=== PATIENT | male | born 1990 | race Caucasian/White ===

== ENCOUNTER 2017-01-28 11:36 | Inpatient (IN) | payer BC, SELFPAY ==
[~2017-01-28] VITALS: Ht 182.9 cm; Wt 139.4 kg
--- NOTE | ~2017-01-28 | DS ---
ADMIT: 01/28/2017 RM/LOC: 625 [facility] MR#: [id number] [address] [facility] [address] [place], [place] [address] [address] [facility] 7 [place] [address] General Discharge Summary SEX: M AGE: 26 : 1990 ADMISSION DATE: 01/28/2017 DISCHARGE DATE: 01/30/2017 REASON FOR ADMISSION: 1. Seizure. 2. Left frontal lobe lesion. HOSPITAL COURSE: On the day of admission, Mr. Vergara was at the mall with his fiancee and had a seizure. He does not have a history of seizures. He does not remember the seizure. He was brought to the [facility] Emergency Room by ambulance. A CT scan of his head was obtained and revealed a left frontal lobe lesion. He was admitted to the Med/Surg floor for monitoring and care. He was started on Keppra for the seizures. He was also placed on seizure precautions. Hospital day #2, he was awake and alert, he was moving all extremities x4. There was question if he had very mild dystonia. A CT scan of his chest, abdomen and pelvis was obtained. This revealed a slightly increased tissue within the left breast, otherwise no acute findings noted. An ultrasound of the left breast was obtained and was negative for any acute findings. Hospital day #3, he was awake and alert, he was afebrile and his vital signs were stable. He was moving all extremities x4. He denied headache or visual disturbances. He had no further seizures. He was ambulating, urinating, and defecating per his norm and was requesting discharge home. DISCHARGE CONDITION: Good. DISCHARGE MEDICATIONS: 1. Claritin-D 1 tablet daily. 2. Keppra 500 mg p.o. b.i.d. 3. Augmentin twice daily, finish the dosing he had at home. 4. Multivitamin daily. 5. Effexor ER 150 mg q.p.m. 6. Super B-Complex daily p.r.n. 7. Vitamin D3 5000 units daily. 8. Fortune complex 500 mg daily. 9. Lutein/zeaxanthin 25/5 mg daily. DISCHARGE INSTRUCTIONS: Per Dr. Bernard. He can have a regular diet. He should be off work until he is seen in the clinic next . He should return to the ER if any seizures. He should utilize fall precautions. He ADMIT: 01/28/2017 RM/LOC: 625 [facility] MR#: [id number] [address] [facility] [address] [place] [id number] [address] [place] [address] General Discharge Summary SEX: M AGE: 26 : 1990 should not take any NSAIDs. He should not take any aspirin. He is to get a functional MRI of the brain in [place] for evaluation of his frontal lesion in correlation to the speech center prior to his appointment with Dr. Bernard next . He will call with any questions or concerns including neurological worsening, signs or symptoms of infection, or any other issues. FOLLOWUP: He will follow up with Dr. Bernard in clinic next . DISPOSITION: He was discharged home. Total iopv-jv-mryi time for the discharge planning, care coordination was 30 minutes. Juany Cruz APRN / Ricardo Bernard MD / margot JOB #: [id number] CC: Ricardo Bernard MD, Attending Physician Jason Chew MD, Family Physician
[2017-01-30] MEDS ORDERED: EFFEXOR XR DPS150 MG PO (19:56)
[2017-01-30] MEDS ORDERED: AUGMENTIN 875-1 EACH PO (19:56)
[2017-01-30] MEDS ORDERED: MEN'S DAILY FO1 EACH PO (19:57)
[2017-01-30] MEDS ORDERED: SUPER B COMPLE150 MG PO (19:57)
[2017-01-30] MEDS ORDERED: LUTEIN-ZEAXANT1 EACH PO (19:58)
[2017-01-30] MEDS ORDERED: VITAMIN D35000 UNI1 PO (19:58)
[2017-01-30] MEDS ORDERED: [UNRECOGNIZED DRUG - OTHER] PO (19:58)
[2017-01-30] MEDS ORDERED: KEPPRA DPS500 MG PO (19:59)
[2017-01-30] MEDS ORDERED: CLARITIN DPS10 MG PO (19:59)
--- NOTE | 2017-02-07 06:57 | ER ---
ADMIT: 01/28/2017 RM/LOC: 625 [facility] MR#: [id number] [address] [facility] [address] [place], [place] [address] [address] [facility] 7 [place] [address] Emergency Room Report SEX: M AGE: 26 : 1990 DATE: 01/28/2017 CHIEF COMPLAINT: Seizure. HISTORY OF PRESENT ILLNESS: The patient is a 26-year-old male with no seizure history, who comes in by EMS for possible seizure. He was at the mall with his significant other when the event happened. Apparently, he had a normal morning and had no preceding events. She states that he was talking with an employee at the mall and herself and is looking something up on his phone when he became unresponsive, his arms tightened up to his chest, and he fell backwards and started shaking all over. Apparently, he lost consciousness and symptoms lasted for approximately 3 to 5 minutes. When he stopped shaking, he had episodes consistent with postictal and was decreased responsiveness. There was no loss of bowel or bladder function and no injuries I could appreciate. The patient reports that he has been on antibiotics for the past week to week and a half for some sinus issues, but otherwise denies any other symptoms. REVIEW OF SYSTEMS: A 10-point review of systems is done and otherwise negative except as in HPI. PAST MEDICAL HISTORY: Unremarkable other than some depression. MEDICATIONS: He is on Effexor. ALLERGIES: NONE. SOCIAL HISTORY: Denies smoking, drug, or alcohol use. PHYSICAL EXAMINATION: See T-sheet for complete physical exam. NEUROLOGIC: Completely unremarkable for me and the only pertinent finding on his exam I could appreciate was he has some abrasion/ecchymosis on the right side of his tongue. LABORATORY DATA: Laboratory shows a slightly elevated white count of 11.4 with normal chemistries. Urinalysis shows 1+ protein, otherwise negative and urine tox is negative. Lactic acid was elevated at 2.3, which is consistent with him having a seizure. CT head was done, which shows a left frontal lobe ADMIT: 01/28/2017 RM/LOC: 625 [facility] MR#: [id number] [address] [address] [address] R [address] [facility] [address] [place] [address] Emergency Room Report SEX: M AGE: 26 : 1990 lesion approximately 6 x 4 cm. EMERGENCY DEPARTMENT COURSE: When I got the results of the CAT scan, I went ahead and contacted Dr. Ricardo Bernard from Neurosurgery, who saw the patient in the Emergency Department and will be admitting him to his service for further workup of this left frontal lobe lesion. I also contacted the patient's primary care physician, Dr. Chew and made him aware the patient was being admitted. The patient is admitted in stable and improved condition with a diagnoses of: 1. Left frontal lobe lesion, possible tumor. 2. First-time seizure. 3. Lactic acidosis. Dale Weber MD/ margot JOB #: [id number] CC: Ricardo Bernard MD, Attending Physician Jason Chew MD, Family Physician
--- NOTE | 2017-02-10 08:45 | HP ---
ADMIT: 01/28/2017 RM/LOC: 625 [facility] MR#: [id number] [address] [facility] [address] [place], [place] [address] [address] [facility] [address] [place] [address] History and Physical SEX: M AGE: 26 : 1990 DATE OF SERVICE: 01/28/2017 REASON FOR ADMIT: Brain lesion. HISTORY OF PRESENT ILLNESS: Mr. Vergara was at the mall today when he had a seizure. He just remembers being at the mall and then waking up in the gurney. He has never had a seizure before. He does take Effexor for some depression, but does not have any other medical history. He has not noted any neurological changes, no speech problems, no weakness. PAST MEDICAL HISTORY: Depression. MEDICATIONS: Effexor. ALLERGIES: NONE KNOWN. SOCIAL HISTORY: He is a nonsmoker and nondrinker. He is engaged. He has no children. FAMILY HISTORY: No history of neurosurgical disease or cancers in the family. REVIEW OF SYSTEMS: Complete review of systems was obtained and annotated in physician intake form. PHYSICAL EXAM: VITAL SIGNS: 150/62, pulse 100, respiring 12 times a minute, 98% on room air. GENERAL: He looks older than his stated age. HEENT: With an atraumatic head. No scleral icterus. Clear oropharynx. Bite hubbard to the bilateral sides of his tongue. NECK: Normal range of motion of his neck. LUNGS: Normal respiratory excursion. ABDOMEN: Obese, soft abdomen. EXTREMITIES: 2+ radial pulses. NEUROLOGICAL EXAMINATION: MENTAL STATUS: He is he is mildly sluggish but he has no aphasia. No speech deficits. He is oriented x4. CRANIAL NERVES: Cranial nerves II through XII are individually tested and found to be intact without deficit with the exception of very mild right ADMIT: 01/28/2017 RM/LOC: 625 [facility] MR#: [id number] [address] [facility] [address] [place], [place] [address] [address] [facility] [address] [place] [address] History and Physical SEX: M AGE: 26 : 1990 facial droop. CEREBELLAR: No cerebellar signs. Gait not tested. Motor 5/5 strength in bilateral upper and lower extremities. Deep tendon reflexes 2/4 in the upper and lower extremities. Sensation intact to the face and upper and lower extremities to light touch. ASSESSMENT AND PLAN: Mr. Vergara is a very pleasant, 26-year-old gentleman with a lesion to the left frontal lobe. I am going to obtain an MRI. We will start him on Keppra and better evaluate this. I think it is most likely a tumor, could also be infection or stroke. I will see what the MRI looks like. He will need to be in the hospital for a day or two for evaluation and planning. Ricardo Bernard MD/ margot JOB #: [id number] CC: Jason Chew, Attending Physician Jason Chew, Family Physician
== END 2017-01-30 11:45 | disposition home or self-care (01) | DRG 71 ==
LOC: ER 11:36 → 6PED 13:50
PROVIDERS: ADMIT Neurological Surgery
DX: G93.9 Disorder of brain, unspecified (principal); Z68.41 Body mass index [BMI] 40.0-44.9, adult; F32.9 Major depressive disorder, single episode, unspecified; R56.9 Unspecified convulsions; E66.01 Morbid (severe) obesity due to excess calories

== ENCOUNTER 2017-02-11 07:23 | Inpatient (IN) | payer BC ==
[~2017-02-11] VITALS: Ht 182.9 cm; Wt 135.2 kg
--- NOTE | ~2017-02-11 | DS ---
ADMIT: 02/11/2017 RM/LOC: 314 [facility] MR#: [id number] [facility]#: [id number] [address] [facility] [address] [place], [place] [address] [address] [facility] [address] [place] [address] Discharge Summary SEX: M AGE: 26 : 1990 ADMISSION DATE: 02/11/2017 DISCHARGE DATE: 02/13/2017 SERVICE: Neurosurgery. REASON FOR ADMISSION: 1. Brain tumor. 2. Seizure. PROCEDURE: An awake left craniotomy for resection of tumor. HOSPITAL COURSE: Mr. Vergara tolerated his procedure well. Postoperatively, he was taken to the ICU for close monitoring and care. Postop day #1 he was awake and alert. He was afebrile. His vital signs were stable. He was moving all extremities x4 with 5/5 strength. He complained of a mild left frontal headache. His head wrap was clean, dry, and intact. His HERIBERTO drain was patent with serosanguineous drainage that was turning more serous. He was working with speech therapy, occupational therapy, and physical therapy and was tolerating this quite well. That afternoon, he was moved out of the intensive care unit to the med/surg floor. Postop day #2, he was awake and alert. He was oriented x4. His vital signs were stable. His speech was fluent. His EOMs were intact. He was moving all extremities x4. His face was symmetrical. His dressing was removed. He was ambulating, urinating, and defecating per his norm and was requesting discharge home. DISCHARGE CONDITION: Good. CURRENT MEDICATIONS: 1. Claritin-D 1 tablet p.o. at bedtime. 2. Colace 100 mg p.o. b.i.d. 3. Effexor 150 mg p.o. at bedtime. 4. Super B complex daily. 5. Prevacid daily. 6. Multivitamin daily. 7. Vitamin D 5000 units daily. 8. Decadron 4 mg every 6 hours x24 hours then every 8 hours x48 hours then 4 mg q.12 hours x48 hours then 4 mg day x24 hours then 3 mg daily x24 hours then 2 mg per day x24 hours then 1 mg per day x24 hours and then discontinue. 9. Tylenol 650 mg p.o. q.4 hours p.r.n. 10.Keppra 500 mg p.o. b.i.d. DISCHARGE INSTRUCTIONS: Per Dr. Bernard, he can have a regular diet. He may shower, he should limit the amount of time his incision is under the water. ADMIT: 02/11/2017 RM/LOC: 314 [facility] MR#: [id number] [address] [address] [address] [place] [address] Discharge Summary SEX: M AGE: 26 : 1990 He should use baby shampoo only on his hair. He should not lift anything greater than 15 pounds[address] He should not drive until he is seen in clinic. He should not work until he is seen in clinic. He will call with any questions or concerns including neurological worsening, signs or symptoms of infection, or any other issues. FOLLOWUP: He will follow up with Dr. Bernard in clinic in 2 weeks. DISPOSITION: He was discharged home. Total ukcv-re-qecn time for the discharge planning and care coordination was 30 minutes. Juany Cruz APRN / Ricardo Bernard MD / beatriz JOB #: [id number] CC: Ricardo Bernard MD, Attending Physician Jason Chew MD, Family Physician
[~2017-02-11 07:23] MED LIST: AUGMENTIN 875-1 EACH PO; CLARITIN DPS10 MG PO; EFFEXOR XR DPS150 MG PO; KEPPRA DPS500 MG PO; LUTEIN-ZEAXANT1 EACH PO; MEN'S DAILY FO1 EACH PO; SUPER B COMPLE150 MG PO; VITAMIN D35000 UNI1 PO; [UNRECOGNIZED DRUG - OTHER] PO
[2017-02-13] MEDS ORDERED: EFFEXOR XR DPS150 MG PO (20:41)
[2017-02-13] MEDS ORDERED: KEPPRA DPS500 MG PO (20:41)
[2017-02-13] MEDS ORDERED: THERA1 EACH PO (20:42)
[2017-02-13] MEDS ORDERED: COLACE-DPS100 MG PO (20:42)
[2017-02-13] MEDS ORDERED: CLARITIN-D 241 EACH PO (20:42)
[2017-02-13] MEDS ORDERED: SUPER B COMPLE150 MG PO (20:42)
[2017-02-13] MEDS ORDERED: VITAMIN D35000 UNI1 PO (20:42)
[2017-02-13] MEDS ORDERED: DEXAMETHASONE4 MG PO (20:43)
[2017-02-13] MEDS ORDERED: PROTONIX40 MG PO (20:43)
[2017-02-13] MEDS ORDERED: TYLENOL DPS325 MG PO (20:44)
--- NOTE | 2017-02-16 08:32 | OR ---
ADMIT: 02/11/2017 RM/LOC: 314 [facility] MR#: [id number] [address] [facility] [address] [place], [place] [address] [address] [facility] 7 [place] [address] Operative/Delivery Room Report SEX: M AGE: 26 : 1990 SURGERY DATE: 02/11/2017 SURGEON: Ricardo Bernard MD CUSTOMS CONSULTANT: Ms. Juany Cruz APRN. 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 PROCEDURE: Stereotactic supratentorial craniotomy for resection of tumor with intraoperative stereotaxy with the tumor resection performed in an awake fashion with 1 hour of intraoperative stimulation for diagnosis of speech centers during the middle of the case. DESCRIPTION OF PROCEDURE: After gaining informed consent, the patient was taken to the operative theater, placed under general LMA anesthesia. A time- out was utilized to ascertain the correct site and side of surgery as well as other pertinent patient historical information. Counts were obtained at the beginning and the end of the case with no change betwixt the two. Antibiotics were given within 1 hour of incision. The patient was very cautiously placed in the Jber head chef and clamped to the bed with all pressure points purposely padded prior to performing the procedure. Extra time was utilized to make sure that we would be able to have acceptable visualization of the patient after awakening him. Decadron and mannitol were given after the opening. The patient's head was co-registered with the BrainLAB system and this was then drawn out on interpretation of the skull and a pterional type incision was then fashioned. The incision was opened and taken down to the temporalis fascia and muscle. This was then very cautiously incised and reflected posteriorly taking caution to leave the tissues near MacCarty keyhole to preserve the frontalis branch of the facial nerve. Self-retaining retractors were placed after placing Pato clips and fish hooks for better exposure. At this point, the pterion was visible. The tumor representation was drawn out over top of the pterion and then pterional frontotemporal craniotomy was fashioned. Rayland hole was fashioned superiorly as well as the keyhole at MacCarty as well as at the zygomatic base. The dura was stripped off internally with a [place] and then the craniotome was brought in the field and the flap was plated and placed in bacitracin irrigant for reimplantation later in the case. Epidural tack-ups were prepared as well. The dura was visible. At this point, the patient was awakened after a very nice and gentle emergence. He was very talkative reproducibly so and was awake and oriented to person, place, and situation. At this point, the dura was opened in a stellate fashion and tacked back with 4-0 Nurolon. A ADMIT: 02/11/2017 RM/LOC: 314 [facility] MR#: [id number] [address] [place] [phone] [address] [place] [address] Operative/Delivery Room Report SEX: M AGE: 26 : 1990 relatively normal-appearing brain was encountered. The pars operculum and the pars triangularis were visible, as well as just posterior to that region. Then, utilizing the [place] Labsmann stimulator with 2-4 seconds of on time with the brain at 1-2 and occasionally 3 milliamps, the patient was speaking with Speech Language Pathology and being tested and multiple points over the next hour were tested, irrigating the brain if there was any post test activation and discharge. The only area that had some breakage of speech was posterior to where the tumor was represented over top of the pars triangularis. There was no sign of speech arrest. Once this was all delineated, the area that appeared to need the most caution was posteriorly and near the sulcus delineating the pars opercularis. Once this was visualized in the anterior aspect of the pars triangularis, bipolar electrocautery was utilized to fashion a corticotomy. The white matter was suctioned away and then tumorous- appearing tissue that was costa and relatively suctionable was noted. 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 With this information, with the patient consistently speaking with Speech Therapy, I utilized the stereotactic guidance system and the cavitating ultrasound aspirator as well as taking multiple larger specimen pieces for formal pathological analysis and sequentially resected by internal debulking and then arriving at normal- appearing white matter at 360 degrees. This extended down to the sylvian fissure in a subpial manner. Pristine hemostasis was maintained throughout the case. There was no sign of damage to any of the vasculature of the candelabra. I was able to freely suction and ultrasonically aspirate the tumor and the surrounding area with no sign of breakage in his speaking and speech utilization eventually arriving at a point that it appeared to be completely resected with the previous tumorous-appearing tissue to no longer be visible or present. Normal-appearing white matter although was visible in the operative bed. Pristine hemostasis was obtained and attention was turned to closure. Epidural tack-ups were fashioned. The dura was closed with simple interrupted 4-0 Nurolon. The Tisseel and DuraGen were then placed and the bone flap was plated back on with the central epidural tack-ups sewn in place. Once all this was completed, attention was then turned to closure of the temporalis fascia, reapproximating temporalis line with simple interrupted 0 Vicryl, leaving a subgaleal submuscular drain. The skin was then closed with simple, inverted, and interrupted 2-0 Vicryl in the galeal tissue as well as tremaine on the skin. ADMIT: 02/11/2017 RM/LOC: 314 [facility] MR#: [id number] [address] [facility] [address] [place] [id number] [address] [place] [address] [address] [place] [address] Operative/Delivery Room Report SEX: M AGE: 26 : 1990 Ms. Cruz assisted with suction, retraction, and closure at the end of the case. COMPLICATIONS: None. ESTIMATED BLOOD LOSS: Charted. SPECIMEN: Left frontal tumor. DISPOSITION: Awake, talkative, moving all 4 extremities in the intensive care unit postoperatively. Ricardo Bernard MD/ margot JOB #: [id number] CC: Ricardo Bernard, Attending Physician Jason Chew, Family Physician
== END 2017-02-13 12:35 | disposition home or self-care (01) | DRG 26 ==
LOC: WOR 07:23 → 3ICU 07:23
PROVIDERS: ADMIT Neurological Surgery
PROC: 4A1004G Monitoring of Central Nervous Electrical Activity, Intraoperative, Open Approach (ICD-10-PCS; principal; 2017-02-11)
PROC: 00B70ZZ Excision of Cerebral Hemisphere, Open Approach (ICD-10-PCS; principal; 2017-02-11)
DX: C71.9 Malignant neoplasm of brain, unspecified (principal); Z68.41 Body mass index [BMI] 40.0-44.9, adult; R56.9 Unspecified convulsions; F32.9 Major depressive disorder, single episode, unspecified; E66.9 Obesity, unspecified

== ENCOUNTER 2017-02-18 09:07 | Emergency (ER) | payer BC ==
[~2017-02-18 09:07] MED LIST changes: +CLARITIN-D 241 EACH PO; +COLACE-DPS100 MG PO; +DEXAMETHASONE4 MG PO; +PROTONIX40 MG PO; +THERA1 EACH PO; +TYLENOL DPS325 MG PO
--- NOTE | 2017-02-22 23:07 | ER ---
ADMIT: 02/18/2017 RM/LOC: ER [facility] MR#: [id number] [address] [facility] [address] [place], [place] [address] [address] [facility] 7 [place] [address] Emergency Room Report SEX: M AGE: 26 : 1990 DATE: 02/18/2017 ADDENDUM: See T-sheet for complete H and P. A 26-year-old male with history of a right frontal lobe tumor that was found on 01/28/2017 after he had a seizure that day. He has subsequently had a craniotomy with resection of the tumor one week ago, went home from the hospital 5 days ago. He has been on Keppra 500 mg b.i.d. from the time of his first seizure. He has had no subsequent seizures until he had one today. It was witnessed, occurred at home, lasted about a minute, it sounds like he lost consciousness and had some generalized shaking. No loss of bowel or bladder function. Did not lose his pulse and was breathing fine. He had a very short postictal time and is back to baseline now. I spoke to Dr. Bernard, who is his surgeon, and wanted me to get a hold of Neurology to see if they had any recommendations. I spoke to Dr. Agosto and at this time, he recommends 2 g IV bolus of Keppra and starting him on 1500 mg of Keppra b.i.d. The patient is supposed to see Dr. Bernard in followup for his postop and he is supposed to keep that appointment. Call the office if he has any concerns or return to the ER for any worsening symptoms. Dale Weber MD/ margot JOB #: [id number] CC: Dale Weber MD, Attending Physician Jason Chew MD, Family Physician
== END 2017-02-18 11:05 | disposition home or self-care (01) ==
LOC: ER 09:07
DX: R56.9 Unspecified convulsions (principal); F32.9 Major depressive disorder, single episode, unspecified; Z79.899 Other long term (current) drug therapy

== ENCOUNTER → 2017-04-13 | Outpatient (CLI) | payer BC, OTHER | END | disposition home or self-care (01) | LOC: RAD.S 09:16 | DX: C71.9 Malignant neoplasm of brain, unspecified (principal); G93.6 Cerebral edema; Z98.890 Other specified postprocedural states ==